=== PATIENT | female | born 1965 | race African-American/Black ===

== ENCOUNTER → 2017-04-07 | Outpatient (CLI) | payer OTHER ==
--- NOTE | 2017-04-07 10:00 | WOMENS IMAGING REPORT ---
EXAM DESCRIPTION: BILAT SCREENING MAMMO W/CAD COMPLETED DATE/TIME: 04/07/2017 7:27 am REASON FOR STUDY: SCREENING MAMMO Z12.31 ENCNTR SCREEN MAMMOGRAM FOR MALIGNANT NEOPLASM OF GEENA COMPARISON: 05/06/2014 TECHNIQUE: Standard craniocaudal and mediolateral oblique views of each breast recorded using digita l acquisition. LIMITATIONS: None. FINDINGS: No masses, calcifications or architectural distortion. No areas of suspicion. Read with the assistance of CAD. .[facility] - R2 Cenova Version 1.3 .[facility] - R2 Cenova Version 1.3 .[facility] - R2 Cenova Version 2.4 .[facility] [place] - R2 Cenova Version 2.4 .[facility] - R2 Clinical Trials Assistant Version 9.2 IMPRESSION: NORMAL MAMMOGRAM. BIRADS 1. BREAST DENSITY: b. There are scattered areas of fibroglandular density. BIRAD: 1 NEGATIVE RECOMMENDATION: ROUTINE SCREENING COMMENT: The patient has been notified of the results by letter per SA requirements. Additional no tification policies are in place for contacting patient with suspicious or incomplete findings. Quality ID #[id number]: The [employer] recommends an annual screening mammogram for women aged 40 years or over. This facility utilizes a reminder system to ensure that all patients receive reminder letters, and/or direct phone calls for appointments. This includes reminders for routine scr eening mammograms, diagnostic mammograms, or other Breast Imaging Interventions when appropriate. Th is patient will be placed in the appropriate reminder system. The [employer] (ACR) has developed recommendations for screening MRI of the breast s in certain patient populations, to be used in conjunction with mammography. Breast MRI surveillanc e may be appropriate for women with more than 20% lifetime risk of developing breast cancer as deter mined by genetic testing, significant family history of the disease, or history of mantle radiation f or Hodgkins Disease. ACR Practice Guidelines 2008. TECHNICAL DOCUMENTATION: FINDING NUMBER: (1) ASSESSMENT: (1) JOB ID: [id number] [employer]- All Rights Reserved
== END ==
LOC: WI 07:03
PROVIDERS: ATTEND Internal Medicine
DX: Z12.31 Encounter for screening mammogram for malignant neoplasm of breast (principal)
CPT/HCPCS: 77067; G0202

== ENCOUNTER 2017-06-27 14:17 | Emergency (ER) | payer OTHER ==
[2017-06-27] MEDS ORDERED: ACETAMINOPHEN 325 MG TABLET PO ONE (14:54)
--- NOTE | 2017-06-27 15:01 | ER Document Report ---
ED Fall - General Chief Complaint: Fall Stated Complaint: FALL/ RIGHT FOOT PAIN Time Seen by Provider: 06/27/17 14:36 Mode of Arrival: Ambulatory Information source: Patient Notes: 51-year-old female presents to ED for complaint of pain to the right foot and great toe. She states she fell this morning and thought that she had just injured her toe but the pain continued all day has not gotten any better. So she came to the ER to get her toe examined. Her home meds are metoprolol ER 200 mg daily valsartan/HCTZ 320/25 daily amlodipine besylate 10 mg p.o. daily amphetamine 1 daily. TRAVEL OUTSIDE OF THE [place] IN LAST 30 DAYS: No - HPI Occurred: This morning Where: Work Context: Tripped Associated symptoms: None Location of injury/pain: Foot Quality of pain: Achy, Sharp Severity: Moderate Pain Level: 4 - Related data Allergies/Adverse Reactions: iodine [Iodine] Allergy (Severe, Verified 06/27/17 14:19) Anaphylaxis Shellfish * [Shellfish] Allergy (Severe, Verified 06/27/17 14:19) Anaphylaxis verapamil Allergy (Verified 06/27/17 14:41) Home Medications: Current Home Medications Amlodipine Besylate [Norvasc 10 mg Tablet] 1 tab PO DAILY 06/27/17 [History] Metoprolol Succinate 1 tab PO DAILY 06/27/17 [History] Phentermine HCl 37.5 mg PO DAILY 06/27/17 [History] Valsartan/Hydrochlorothiazide [Valsartan-Hctz 320-25 mg Tab] 1 tab PO DAILY [History] Past Medical History - General Information source: Patient - Social History Smoking Status: Current Every Day Smoker Cigarette use (# per day): Yes - One third pack per day Smoking Education Provided: Yes - About 3 minutes Frequency of alcohol use: None Drug Abuse: None 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 denies: CAD, CVA , Hyperlipidemia, Thyroid Disfunction Patient has suicidal ideation: No Patient has homicidal ideation: No - Past Medical History Cardiac Medical History: Reports: Hx Hypertension Pulmonary Medical History: Reports: None EENT Medical History: Reports: None Neurological Medical History: Reports: None Endocrine Medical History: Reports: None Renal/ Medical History: Reports: Hx Ovarian Cysts, Other - Patient donated 1 kidney/endometriosis and fibroid uterus Malignancy Medical History: Reports: None GI Medical History: Reports: None Musculoskeltal Medical History: Reports Hx Arthritis Skin Medical History: Reports None Psychiatric Medical History: Reports: None Traumatic Medical History: Reports: None Infectious Medical History: Reports: None Past Surgical History: Reports: Hx Gynecologic Surgery - Ablation, removal of one ovary and tube on the right then hysterectomy, Hx Hysterectomy - Immunizations Hx Diphtheria, Pertussis, Tetanus Vaccination: Yes Review of Systems - Review of Systems Constitutional: No symptoms reported EENT: No symptoms reported Cardiovascular: No symptoms reported Respiratory: No symptoms reported Gastrointestinal: No symptoms reported Genitourinary: No symptoms reported Female Genitourinary: No symptoms reported Musculoskeletal: Other - Right foot and great toe pain after falling this morning Skin: No symptoms reported Hematologic/Lymphatic: No symptoms reported Neurological/Psychological: No symptoms reported Physical Exam - Vital signs Vitals: Temp Pulse Resp BP Pulse Ox 98.7 F 76 20 150/80 H 98 06/27/17 14:26 06/27/17 14:26 06/27/17 14:26 06/27/17 14:26 06/27/17 14:26 Interpretation: Normal - General General appearance: Appears well, Alert - HEENT Head: Normocephalic, Atraumatic Eyes: Normal Pupils: PERRL - Respiratory Respiratory status: No respiratory distress Chest status: Nontender Breath sounds: Normal Chest palpation: Normal - Cardiovascular Rhythm: Regular Heart sounds: Normal auscultation Murmur: No - Abdominal Inspection: Normal Distension: No distension Bowel sounds: Normal Tenderness: Nontender Organomegaly: No organomegaly - Back Back: Normal, Nontender - Extremities General upper extremity: Normal inspection, Nontender, Normal color, Normal ROM , Normal temperature General lower extremity: Normal color, Normal ROM, Normal temperature, Normal weight bearing. No: Theodora's sign Foot: Tender, Metatarsal compress. pain - Great toe and foot just behind the great toe first, No evidence of FB. No: Abrasion, Deformity, Ecchymosis, Edema , Instability, Nail injury, Navicular tenderness, Puncture wound, Tender 5th metatarsal, Unable to bear weight - Neurological Neuro grossly intact: Yes Cognition: Normal Orientation: AAOx4 [place] Coma Scale Eye Opening: Spontaneous [place] Coma Scale Verbal: Oriented [place] Coma Scale Motor: Obeys Commands Radha Coma Scale Total: 15 Speech: Normal Motor strength normal: LUE, RUE, LLE, RLE Sensory: Normal - Psychological Associated symptoms: Normal affect, Normal mood - Skin Skin Temperature: Warm Skin Moisture: Dry Skin Color: Normal Course - Re-evaluation Re-evalutation: 06/27/17 15:44 Discusssed xray with patient and written report of x-ray given to patient. Patient will be discharged home and instructed to follow-up with primary doctor or orthopedics if the pain continues. 06/28/17 09:07 - Vital Signs Vital signs: Temp Pulse Resp BP Pulse Ox 98.3 F 67 18 146/84 H 97 06/27/17 15:47 06/27/17 15:47 06/27/17 15:47 06/27/17 15:47 06/27/17 15:47 - Diagnostic Test Radiology reviewed: Image reviewed, Reports reviewed Discharge - Discharge Clinical Impression: Contusion of right foot Qualifiers: Encounter type: initial encounter Qualified Code(s): S90.31XA - Contusion of right foot, initial encounter HTN (hypertension) Qualifiers: Hypertension type: unspecified Qualified Code(s): I10 - Essential (primary) hypertension Condition: Stable Disposition: HOME, SELF-CARE Instructions: Family Physicians / Practices Additional Instructions: CONTUSION: Your injury has resulted in a contusion -- a crushing of the deep tissues. No injury to important structures was detected during the physician's exam. Contusions vary in the amount of pain they cause, and in the length of time required for healing. Typically, the area will become bruised, and will remain painful to touch for two or three weeks. However, most patients are back to working and playing within a few days. After the initial period of rest and cold-packs, your symptoms (together with the doctor's recommendations) will determine how rapidly you can get back to full activity. Usually this means "do what feels okay, but don't do things that hurt." If re-examination was recommended, it's important to follow up as instructed. Call the doctor or return any time if pain increases, if swelling becomes severe, if you develop numbness or weakness in an injured extremity, or if any other alarming symptoms occur. USE OF TYLENOL (ACETAMINOPHEN): Acetaminophen may be taken for pain relief or fever control. It's much safer than aspirin, offering a wider range of "safe" dosages. It is safe during . Some brand names are Tylenol, Panadol, Datril, Anacin 3, Tempra, and Liquiprin. Acetaminophen can be repeated every four hours. The following are maximum recommended dosages: WEIGHT Dose Drops Elixir Chewable( 80mg) (LBS.) drprs=droppers tsp=teaspoon 6 40 mg 0.4 ml (1/2) 6-11 80 mg 0.8 ml (full) tsp 1 tab 12-16 120 mg 1 1/2 drprs 3/4 tsp 1 1/2 tabs 17-23 160 mg 2 drprs 1 tsp 2 tabs 24-30 240 mg 3 drprs 1 1/2 tsp 3 tabs 30-35 320 mg 2 tsp 4 tabs 36-41 360 mg 2 1/4 tsp 4 1/2 tabs 42-47 400 mg 2 1/2 tsp 5 tabs 48-53 480 mg 3 tsp 6 tabs 54-59 520 mg 3 1/4 tsp 6 1/2 tabs 60-64 560 mg 3 1/2 tsp 7 tabs 65-70 600 mg 3 3/4 tsp 7 1/2 tabs 71-76 640 mg 4 tsp 8 tabs 77-82 720 mg 4 1/2 tsp 9 tabs 83-88 800 mg 5 tsp 10 tabs >89 pounds or adults 650 mg to 900 mg Acetaminophen can be repeated every four hours. Maximum dose not to exceed 4000 mg a day. These maximum recommended dosages are slightly higher than the dosages written on the product container, but these dosages are very safe and below the toxic dosage for acetaminophen. Ice & Elevation Apply ice packs frequently against the painful area. Many different schedules are recommended, such as "20 minutes on, 20 minutes off" or "one hour ice, two hours rest." If you need to work, you may need to go longer between ice treatments. You should plan to have the area ice packed AT LEAST one- fourth of the time. The ice should be applied over the wrap, tape, or splint, or over a layer of cloth -- not directly against the skin. Some ice bags have a built-in cloth and can be put directly on the skin. Your injured part should be elevated as much as possible over the next 48 hours. Try to keep the injury above the level of the heart. Avoid use of the injured area. Elevation and rest will decrease the swelling. FOLLOW-UP CARE: If you have been referred to a physician for follow-up care, call the physician s office for an appointment as you were instructed or within the next two days. If you experience worsening or a significant change in your symptoms, notify the physician immediately or return to the Emergency Department at any time for re-evaluation. Forms: Elevated Blood Pressure Referrals: NANCY NAVARRO DO [ACTIVE STAFF] - Follow up as needed
--- NOTE | 2017-06-27 15:32 | RADIOLOGY REPORT (SQ) ---
EXAM DESCRIPTION: FOOT RIGHT COMPLETE COMPLETED DATE/TIME: 06/27/2017 3:13 pm REASON FOR STUDY: fall injury pain great toe and foot COMPARISON: None. NUMBER OF VIEWS: Three views. TECHNIQUE: AP, lateral and oblique radiographic images acquired of the right foot. LIMITATIONS: None. FINDINGS: MINERALIZATION: Normal. BONES: No acute fracture or dislocation. No worrisome bone lesions. JOINTS: No effusions. SOFT TISSUES: No soft tissue swelling. No foreign body. OTHER: No other significant finding. IMPRESSION: NEGATIVE STUDY OF THE RIGHT FOOT. NO RADIOGRAPHIC EVIDENCE OF ACUTE INJURY. TECHNICAL DOCUMENTATION: JOB ID: [id number] [employer]- All Rights Reserved
[2017-06-27 15:50] VITALS: BP 146/84
== END 2017-06-27 15:50 | disposition home or self-care (01) ==
LOC: ER 14:17
DX: S90.31XA Contusion of right foot, initial encounter (principal); I10 Essential (primary) hypertension; M79.671 Pain in right foot; W19.XXXA Unspecified fall, initial encounter; Z79.899 Other long term (current) drug therapy
CPT/HCPCS: 99283

== ENCOUNTER → 2018-04-13 | Outpatient (CLI) | payer OTHER ==
--- NOTE | 2018-04-13 17:00 | WOMENS IMAGING REPORT ---
EXAM DESCRIPTION: 3D SCREENING MAMMO BILAT COMPLETED DATE/TIME: 04/13/2018 9:38 am REASON FOR STUDY: SCREENING MAMMO Z12.31 ENCNTR SCREEN MAMMOGRAM FOR MALIGNANT NEOPLASM OF GEENA COMPARISON: 2013 TECHNIQUE: Standard craniocaudal and mediolateral oblique views of each breast recorded using digita l acquisition and breast tomosynthesis. LIMITATIONS: None. FINDINGS: No masses, calcifications or architectural distortion. No areas of suspicion. Read with the assistance of CAD. .[facility] - R2 Cenova Version 1.3 .[facility] - R2 Cenova Version 1.3 .[facility] - R2 Cenova Version 2.4 .[facility] - R2 Cenova Version 2.4 .[facility] - R2 Spot Man Version 9.2 IMPRESSION: NORMAL MAMMOGRAM. BIRADS 1. BREAST DENSITY: b. There are scattered areas of fibroglandular density. BIRAD: 1 NEGATIVE RECOMMENDATION: ROUTINE SCREENING Please continue yearly bilateral screening tomosynthesis in April 2019. COMMENT: The patient has been notified of the results by letter per SA requirements. Additional no tification policies are in place for contacting patient with suspicious or incomplete findings. Quality ID #[id number]: [employer] recommends an annual screening mammogram for women aged 40 years or over. This facility utilizes a reminder system to ensure that all patients receive reminder letters, and/or direct phone calls for appointments. This includes reminders for routine scr eening mammograms, diagnostic mammograms, or other Breast Imaging Interventions when appropriate. Th is patient will be placed in the appropriate reminder system. The [employer] (ACR) has developed recommendations for screening MRI of the breast s in certain patient populations, to be used in conjunction with mammography. Breast MRI surveillanc e may be appropriate for women with more than 20% lifetime risk of developing breast cancer as deter mined by genetic testing, significant family history of the disease, or history of mantle radiation f or Hodgkins Disease. ACR Practice Guidelines 2008. DBT Technology DBT is a type of tomographic mammography. With conventional mammography, overlapping breast tissue ma y make lesions difficult to detect, even with good compression. DBT uses an x-ray tube that rotates a round the breast, taking images at different angles. These images are then combined to create thin sl ices of the breast that the radiologist can view as a 3D reconstruction. The [employer] unit can perform full-field digital mammograms (2D imaging); or DBT (3D imaging); or both, in a combination mode that quickly performs both the mammogram and the tomosynthesis scan while the breast is still compressed. PQRS 6045F: Fluoroscopic imaging is not utilized for breast tomosynthesis. TECHNICAL DOCUMENTATION: FINDING NUMBER: (1) ASSESSMENT: (1) JOB ID: [id number] [employer]- All Rights Reserved Reading location - IP/workstation name: [facility]-RR2
== END ==
LOC: WI 09:11
PROVIDERS: ATTEND Internal Medicine
DX: Z12.31 Encounter for screening mammogram for malignant neoplasm of breast (principal)
CPT/HCPCS: 77063; 77067

== ENCOUNTER 2018-05-22 14:32 | Emergency (ER) | payer OTHER ==
[2018-05-22 14:51] VITALS: BP 148/83
--- NOTE | 2018-05-22 15:25 | ER Document Report ---
HPI - HPI Patient complains to provider of: knee pain Time Seen by Provider: 05/22/18 14:53 Onset: Last week Onset/Duration: Sudden, Persistent, Waxing and waning Quality of pain: Achy Pain Level: 4 Context: Patient presents emergency department with complaints of left knee pain that started happening approximately 1 week ago. She denies trauma. 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 She denies recent trip. No shortness of breath. She reports the pain comes and goes and her knee will swell up. She reports she had the same knee pain approximately 1 year ago when saw her primary care provider who told her it was probably arthritis. She denies other symptoms such as fever nausea vomiting diarrhea. Patient reports she has been taking Tylenol but that has not relieved the pain. Last Tylenol was approximately 10:00 this morning. 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 denies: CAD, CVA , Hyperlipidemia, Thyroid Disfunction Patient has suicidal ideation: No Patient has homicidal ideation: No - Past Medical History Cardiac Medical History: Reports: Hx Hypertension Renal/ Medical History: Reports: Hx Ovarian Cysts. Denies: Hx Peritoneal Dialysis Musculoskeletal Medical History: Reports Hx Arthritis Past Surgical History: Reports: Hx Cardiac Surgery - ablation, Hx Gynecologic Surgery - Ablation, removal of one ovary and tube on the right then hysterectomy , Hx Hysterectomy, Hx Kidney (Renal Surgery) - one Kidney. Patient donated a kidney to her father - Immunizations Hx Diphtheria, Pertussis, Tetanus Vaccination: Yes Vertical Provider Document - CONSTITUTIONAL Agree With Documented VS: Yes Exam Limitations: No Limitations General Appearance: WD/WN, No Apparent Distress - INFECTION CONTROL TRAVEL OUTSIDE OF THE [place] IN LAST 30 DAYS: No - HEENT HEENT: Atraumatic, Normocephalic - NECK Neck: Supple - RESPIRATORY Respiratory: No Respiratory Distress - CARDIOVASCULAR Cardiovascular: Regular Rate - MUSCULOSKELETAL/EXTREMETIES Musculoskeletal/Extremeties: MAEW, FROM, Non-Tender - no c/o knee pain with palpation or movement, no erythema, warmth, no obvious deformity. neg. homans, no c/o calf pain. patient reports anterior knee pain that comes/goes - NEURO Level of Consciousness: Awake, Alert, Appropriate Motor/Sensory: No Motor Deficit - DERM Integumentary: Warm, Dry Adult Front & Back Diagram: 1 - reports area of pain that comes/goes Course - Re-evaluation Re-evalutation: 05/22/18 16:30 Patient was instructed on x-ray osteoarthritis knee effusion. She was instructed on the importance of follow-up with Dr. Rojas on Friday. Rest ice. She cannot take NSAIDs due to her having one kidney. Patient verbalized understanding to all instructions. She was also instructed of signs and symptoms of infection to the knee. Dictation of this chart was performed using voice recognition software; therefore, there may be some unintended grammatical errors. - Vital Signs Vital signs: Temp Pulse Resp BP Pulse Ox 98.7 F 72 18 148/83 H 95 05/22/18 14:50 05/22/18 14:50 05/22/18 14:50 05/22/18 14:50 05/22/18 14:50 - Diagnostic Test Radiology reviewed: Image reviewed, Reports reviewed - EXAM DESCRIPTION: KNEE LEFT 4 VIEW COMPLETED DATE/TIME: 05/22/2018 3:36 pm REASON FOR STUDY: pain, swelling COMPARISON: None. NUMBER OF VIEWS: Four views. TECHNIQUE: AP, lateral, and both oblique radiographic images acquired of the left knee. LIMITATIONS: None. FINDINGS: MINERALIZATION: Normal. BONES: No acute fracture or dislocation. No worrisome bone lesions. JOINT: Moderate tricompartmental osteoarthritis. Moderate knee joint effusion. SOFT TISSUES: No soft tissue swelling. No radio-opaque foreign body. OTHER: No other significant finding. IMPRESSION: No fracture or dislocation of the left knee. Moderate tricompartmental osteoarthritis. Nonspecific knee joint effusion. Discharge - Discharge Clinical Impression: Left knee pain Qualifiers: Chronicity: acute Qualified Code(s): M25.562 - Pain in left knee Osteoarthritis Qualifiers: Osteoarthritis location: knee Osteoarthritis type: unspecified Laterality: left Qualified Code(s): M17.12 - Unilateral primary osteoarthritis, left knee Condition: Stable Disposition: HOME, SELF-CARE Instructions: Ice & Elevation ([facility]), Knee Effusion ([facility]), Osteoarthritis ([facility]) Additional Instructions: *You have been evaluated for left knee pain, osteoarthritis, knee effusion *Rest your knee this /Ice/Elevate *Follow up with your primary care provider Friday *Take tylenol as indicated *Return to ED for worsening condition, changes, needs Monitor your blood pressure. Your blood pressure was elevated today. This may be because you were anxious, in pain or because you need medication. It is important to follow up with your primary care provider for full evaluation. Forms: Return to Work Referrals: PEÑA ROJAS MD [Primary Care Provider] - 05/25/18
--- NOTE | 2018-05-22 15:59 | RADIOLOGY REPORT (SQ) ---
EXAM DESCRIPTION: KNEE LEFT 4 VIEW COMPLETED DATE/TIME: 05/22/2018 3:36 pm REASON FOR STUDY: pain, swelling COMPARISON: None. NUMBER OF VIEWS: Four views. TECHNIQUE: AP, lateral, and both oblique radiographic images acquired of the left knee. LIMITATIONS: None. FINDINGS: MINERALIZATION: Normal. BONES: No acute fracture or dislocation. No worrisome bone lesions. JOINT: Moderate tricompartmental osteoarthritis. Moderate knee joint effusion. SOFT TISSUES: No soft tissue swelling. No radio-opaque foreign body. OTHER: No other significant finding. IMPRESSION: No fracture or dislocation of the left knee. Moderate tricompartmental osteoarthritis. Nonspecific knee joint effusion. TECHNICAL DOCUMENTATION: JOB ID: [id number] [employer]- All Rights Reserved Reading location - IP/workstation name: [email or web address]
== END 2018-05-22 16:45 | disposition home or self-care (01) ==
LOC: ER 14:32
DX: M17.12 Unilateral primary osteoarthritis, left knee (principal); M25.562 Pain in left knee; M25.462 Effusion, left knee; F17.210 Nicotine dependence, cigarettes, uncomplicated; I10 Essential (primary) hypertension
CPT/HCPCS: 99283

== ENCOUNTER 2018-06-20 02:52 | Emergency (ER) | payer OTHER ==
[2018-06-20] MEDS ORDERED: MORPHINE SULFATE 10 MG/ML INJ IV ONE (03:14)
[2018-06-20] MEDS ORDERED: ONDANSETRON HCL INJ/PF 4 MG/2 ML SDV IV ONE (03:14)
--- NOTE | 2018-06-20 03:16 | ER Document Report ---
ED Cardiac - General TRAVEL OUTSIDE OF THE [place] IN LAST 30 DAYS: No <TIMI RODARTE - Last Filed: 06/20/18 06:55> <ANGELIKA VILCHIS - Last Filed: 06/20/18 13:41> - General Chief Complaint: Chest Pain Stated Complaint: CHEST PAIN Time Seen by Provider: 06/20/18 03:00 Notes: Patient is a 52-year-old female that comes to the Emergency department for chief complaint of chest pain. She states she started feeling pain in her chest at about 11:30 PM, she went to sleep, she woke up, she vomited 4 times and broke out into a sweat. She states she took two 81 mg aspirins, she was given 2 more by EMS, she was also given 2 sublingual nitroglycerin doses. She states her symptoms almost completely resolved but now they are starting to come back a little bit. She denies any abdominal pain, back pain, fever, cough. Past medical history of hypertension, obesity, and she donated one kidney to a family member. She denies personal or family history of NM, states she has never had a stress test or cardiac catheterization. She did eat [employer] for dinner but she again denies any abdominal pain. (TIMI RODARTE) - Related Data Allergies/Adverse Reactions: iodine [Iodine] Allergy (Severe, Verified 06/27/17 14:19) Anaphylaxis Shellfish * [Shellfish] Allergy (Severe, Verified 06/27/17 14:19) Anaphylaxis verapamil Allergy (Verified 06/27/17 14:41) Past Medical History - General Information source: Patient - Social History Smoking Status: Never Smoker Frequency of alcohol use: None Drug Abuse: None Lives with: Family Family History: Arthritis, COPD, DM, Hypertension, Malignancy. denies: CAD, CVA , Hyperlipidemia, Thyroid Disfunction Patient has suicidal ideation: No Patient has homicidal ideation: No - Past Medical History Cardiac Medical History: Reports: Hx Hypertension Renal/ Medical History: Reports: Hx Ovarian Cysts. Denies: Hx Peritoneal Dialysis Musculoskeletal Medical History: Reports Hx Arthritis Past Surgical History: Reports: Hx Cardiac Surgery - ablation, Hx Gynecologic Surgery - Ablation, removal of one ovary and tube on the right then hysterectomy , Hx Hysterectomy, Hx Kidney (Renal Surgery) - one Kidney. Patient donated a kidney to her father - Immunizations Hx Diphtheria, Pertussis, Tetanus Vaccination: Yes <TIMI RODARTE - Last Filed: 06/20/18 06:55> Review of Systems - Review of Systems Constitutional: See HPI EENT: No symptoms reported Cardiovascular: See HPI Respiratory: No symptoms reported Gastrointestinal: See HPI Genitourinary: No symptoms reported Female Genitourinary: No symptoms reported Musculoskeletal: No symptoms reported Skin: No symptoms reported Hematologic/Lymphatic: No symptoms reported Neurological/Psychological: No symptoms reported <TIMI RODARTE - Last Filed: 06/20/18 06:55> Physical Exam <TIMI RODARTE - Last Filed: 06/20/18 06:55> <ANGELIKA VILCHIS - Last Filed: 06/20/18 13:41> - Vital signs Vitals: Pulse Ox 100 06/20/18 02:58 - Notes Notes: GENERAL: Alert, interacts well. No acute distress. HEAD: Normocephalic, atraumatic. EYES: Pupils equal, round, and reactive to light. Extraocular movements intact. ENT: Oral mucosa moist, tongue midline. Oropharynx unremarkable. Airway patent. Nares patent, no nasal septal hematoma, TM's intact. NECK: Full range of motion. Supple. Trachea midline. LUNGS: Clear to auscultation bilaterally, no wheezes, rales, or rhonchi. No respiratory distress. HEART: Regular rate and rhythm. No murmur ABDOMEN: Soft, non-tender. Non-distended. Bowel sounds present in all 4 quadrants. GENITOURINARY: Deferred EXTREMITIES: Moves all 4 extremities spontaneously. No edema, normal radial and dorsalis pedis pulses bilaterally. No cyanosis. BACK: no cervical, thoracic, lumbar midline tenderness. No saddle anesthesia, normal distal neurovascular exam. NEUROLOGICAL: Alert and oriented x3. Normal speech. [cranial nerves II through XII grossly intact]. PSYCH: Normal affect, normal mood. SKIN: Warm, dry, normal turgor. No rashes or lesions noted. (TIMI RODARTE) Course - Laboratory Result Diagrams: 06/20/18 03:14 06/20/18 03:55 <TIMI RODARTE - Last Filed: 06/20/18 06:55> - Laboratory Result Diagrams: 06/20/18 03:14 06/20/18 03:55 <MAME,ANGELIKA C - Last Filed: 06/20/18 13:41> - Re-evaluation Re-evalutation: EKG shows sinus rhythm at a rate of 84, normal axis, no T wave inversions or ST segment changes in consecutive leads. No significant change from prior. Chest x-ray unremarkable. CBC, chemistry, lipase unremarkable. Troponin is initially negative. Patient was given morphine, Zofran, I reevaluated her. She has no symptoms at this time but she states she is still intermittent in the center of her chest. This could be reflux, she did have [employer] before lying down and worsening, she has had symptoms similar in the past but she states this does not feel like burning or sharp pain, it feels like squeezing. Will cycle troponin. I discussed with patient different options, she is on the fence about admission or discharge home. I did discuss with Dr. Grace, on-call for Dr. Rojas, he does not recommend admission at this time, he recommends cycle troponin and if this is normal that she can follow-up in the office for additional management including possible scheduled stress test. Heart score: History suspicious - Slightly 0 EKG - Norm 0 Age - 45-65 1 Initial troponin - normal limit = 0 Risk factors 1 point Total =2 Patient will be given Carafate, Pepcid, I discussed cycling troponin and potentially going home, she is very satisfied with this plan she states. (TIMI RODARTE) 06/20/18 07:15 Bedside handoff received from SAVANNA Franco. Patient currently resting comfortable in the stretcher with family members at bedside. Patient denies any active chest pain at this time. Nurse is at bedside drawing repeat troponin. I will update her as soon as troponin is resulted. 06/20/18 08:30 Repeat troponin elevated at 0.347. I discussed these findings with the patient and family members at bedside and patient indicated that if given a choice she would like to be transferred to [facility]. 06/20/18 08:33 Call was placed to [facility], awaiting callback. Patient is chest pain-free at this time. Patient's vital signs are as follows, heart rate 80, sinus rhythm, blood pressure 149/90, respiratory rate 18, SPO2 97%. 06/20/18 08:40 Patient's family came out of room stating that patient had an episode of sudden shaking and went unresponsive. Both nursing staff and myself immediately went to the patient's bedside and found the patient to be in pulseless V. tach with agonal respirations, a code was called, CPR was initiated and Dr. Kapoor was overhead paged to the room. 06/20/18 09:10 Dr. Kapoor remains at the patient's bedside, patient is now intubated and has an organized rhythm with a pulse. See nursing documentation for full code documentation. She was then moved to trauma 2. There are diffuse ST elevations on repeat EKG specifically in leads V2 V3 and V4. I made a phone call to [facility] to update them as to patient's status, they directed me to call the STEMI line. I called the STEMI line and spoke with Dr. Reyna who agrees to accept the patient. Our secretarial staff is actively working on arranging transport. 06/20/18 09:50 Delay in documentation as both Dr. Kapoor and I have been at the bedside since approximately 08:50. Patient has now received thrombolytics, see MAR for detailed times. This was discussed with her family prior to administration and there were no absolute contraindications noted. Patient's family members have been allowed to come to the bedside to see her. They have been fully updated on her status. She is having occasional purposeful movements, she is trying to breathe over the vent, blood pressure is improving maxed out on multiple pressors, see MAR. We are currently awaiting transport, [facility] is in route as there are no aircraft available due to weather. 06/20/18 10:24 Transport crew was at bedside. Patient has been re-evaluated multiple times by both Dr. Kapoor and myself. Patient is currently with blood pressure 107/80, SPO2 90% on the ventilator, heart rate 112, sinus tach on the monitor. 06/20/18 11:17 Patient departed the facility with [employer] crew, patient condition unchanged from previous assessment. BP 100/47, HR 102, RR 18 on Vent with 90% FiO2, SpO2 98%. (ANGELIKA VILCHIS) - Vital Signs Vital signs: Temp Pulse Resp BP Pulse Ox 14 111/83 100 06/20/18 10:23 06/20/18 10:31 06/20/18 11:20 - Laboratory Laboratory results interpreted by me: 06/20/18 06/20/18 06/20/18 03:14 03:55 10:15 RDW 14.9 H Seg Neutrophils % 33.7 L Lymphocytes % 51.8 H Carbonic Acid 1.88 H ABG pH 6.94 L* ABG pCO2 62.3 H ABG HCO3 13.0 L ABG Total CO2 14.9 L ABG O2 Saturation 87.1 L Potassium 3.5 L BUN 22 H Creatine Kinase 214 H Discharge <TIMI RODARTE - Last Filed: 06/20/18 06:55> <ANGELIKA VILCHIS - Last Filed: 06/20/18 13:41> - Discharge Clinical Impression: Cardiac arrest Vomiting Qualifiers: Vomiting type: unspecified Vomiting Intractability: non-intractable Nausea presence: with nausea Qualified Code(s): R11.2 - Nausea with vomiting, unspecified Chest pain Qualifiers: Chest pain type: unspecified Qualified Code(s): R07.9 - Chest pain, unspecified STEMI (ST elevation myocardial infarction) Qualifiers: Involved coronary artery: unspecified coronary artery Qualified Code(s): I21.3 - ST elevation (STEMI) myocardial infarction of unspecified site Hypotension Qualifiers: Hypotension type: unspecified hypotension type Qualified Code(s): I95.9 - Hypotension, unspecified Condition: Critical Disposition: [facility] Prescriptions: Famotidine [Pepcid 20 mg Tablet] 20 mg PO BID #14 tablet Promethazine HCl [Phenergan 25 mg Tablet] 25 mg PO Q6H PRN #15 tablet PRN Reason: Sucralfate [Carafate 1 gm Tablet] 1 gm PO QID #20 tablet Referrals: PEÑA ROJAS MD [Primary Care Provider] - 06/22/18
[2018-06-20 03:22] LABS: ABSOLUTE BASOPHILS # (AUTO) 0.1 10^3/uL (0.0-0.2); ABSOLUTE EOSINOPHILS # (AUTO) 0.2 10^3/uL (0.0-0.6); ABSOLUTE LYMPHOCYTES (AUTO) 4.3 10^3/uL (0.5-4.7); ABSOLUTE MONOCYTES (AUTO) 0.9 10^3/uL (0.1-1.4); ABSOLUTE NEUT (AUTO) 2.8 10^3/uL (1.7-8.2); BASOPHILS % (AUTO) 1.4 % (0-2); EOSINOPHILS % (AUTO) 2.9 % (0-6); HEMATOCRIT 43.5 % (36.0-47.0); HEMOGLOBIN 14.5 g/dL (12.0-15.5); LYMPHOCYTES % (AUTO) 51.8 % (13-45); MEAN CORPUSCULAR HEMOGLOBIN 28.4 pg (27.0-33.4); MEAN CORPUSCULAR HGB CONC 33.3 g/dL (32.0-36.0); MEAN CORPUSCULAR VOLUME 85 fl (80-97); MONOCYTES % (AUTO) 10.2 % (3-13); PLATELET COUNT 211 10^3/uL (150-450); RED BLOOD COUNT 5.11 10^6/uL (3.72-5.28); RED CELL DISTRIBUTION WIDTH 14.9 % (11.5-14.0); SEGMENTED NEUTROPHILS % (AUTO) 33.7 % (42-78); TOTAL CELLS COUNTED % (AUTO) 100 %; WHITE BLOOD COUNT 8.3 10^3/uL (4.0-10.5)
[2018-06-20 03:47] LABS: CREATINE KINASE MB 0.97 ng/mL (<4.55)
[2018-06-20 03:48] LABS: TROPONIN I < 0.012 ng/mL
--- NOTE | 2018-06-20 03:53 | RADIOLOGY REPORT (SQ) ---
EXAM DESCRIPTION: XR CHEST 1 VIEW COMPLETED DATE/TME: 06/20/2018 03:09 CLINICAL HISTORY: 52 years, Female, chest pain COMPARISON: None. NUMBER OF VIEWS: 1 TECHNIQUE: Portable chest LIMITATIONS: None. FINDINGS: The heart size is normal. The lungs are clear. No pneumothorax IMPRESSION: Negative chest copyright 2010 [employer]- All Rights Reserved
[2018-06-20 04:24] LABS: ALANINE AMINOTRANSFERASE 24 U/L (9-52); ALBUMIN 3.8 g/dL (3.5-5.0); ALKALINE PHOSPHATASE 82 U/L (38-126); ANION GAP 7 (5-19); ASPARTATE AMINO TRANSFERASE 21 U/L (14-36); BILIRUBIN,DIRECT 0.3 mg/dL (0.0-0.4); BILIRUBIN,TOTAL 0.8 mg/dL (0.2-1.3); BLOOD UREA NITROGEN 22 mg/dL (7-20); CALCIUM 9.8 mg/dL (8.4-10.2); CARBON DIOXIDE 28 mmol/L (22-30); CHLORIDE 106 mmol/L (98-107); CREATINE KINASE 214 U/L (30-135); GLUCOSE 98 mg/dL (75-110); POTASSIUM 3.5 mmol/L (3.6-5.0); SODIUM 141.1 mmol/L (137-145); TOTAL PROTEIN 6.7 g/dL (6.3-8.2)
[2018-06-20] MEDS ORDERED: SUCRALFATE 1 GM TABLET PO ONE (04:49)
[2018-06-20] MEDS ORDERED: FAMOTIDINE 20 MG TABLET PO ONE (04:49)
[2018-06-20] MEDS ORDERED: PROMETHAZINE HCL 25 MG TABLET PO ONE (04:56)
--- NOTE | 2018-06-20 07:48 | EKG REPORT ---
SEVERITY:- BORDERLINE ECG - SINUS RHYTHM PROBABLE LEFT ATRIAL ABNORMALITY BORDERLINE R WAVE PROGRESSION, ANTERIOR LEADS : Confirmed by: Angeles Bailey MD 20-Jun-2018 07:48:09
[2018-06-20] MEDS ORDERED: NOREPINEPHRINE BITARTRATE INJ/PF 4 MG/4 ML SDV IV ONE ×3 (08:13→10:38)
[2018-06-20] MEDS ORDERED: DOPAMINE HCL/D5W 800 MG/250 ML RTU BAG IV ONE (08:13)
[2018-06-20] MEDS ORDERED: EPINEPHRINE INJ 1 MG/10 ML DISP.SYRIN ONE (08:13)
[2018-06-20] MEDS ORDERED: AMIODARONE HCL INJ 150 MG/3 ML VIAL IV ONE (08:13)
[2018-06-20] MEDS ORDERED: LORAZEPAM INJ 2 MG/1 ML VIAL ONE (08:42)
[2018-06-20] MEDS ORDERED: VECURONIUM BROMIDE INJ 10 MG VIAL IV ONE ×2 (08:56→09:08)
[2018-06-20] MEDS ORDERED: MIDAZOLAM 2 MG/2 ML INJ ONE (09:04)
[2018-06-20] MEDS ORDERED: MIDAZOLAM 2 MG/2 ML INJ IV ONE (09:06)
[2018-06-20] MEDS ORDERED: DEXTROSE 5%-WATER 250 ML with NOREPINEPHRINE BITARTRATE 4 MG IV PRN ×2 (09:08)
[2018-06-20] MEDS ORDERED: DEXTROSE 5%-WATER 500 ML with AMIODARONE HCL 900 MG IV PRN ×2 (09:08)
[2018-06-20] MEDS ORDERED: EPINEPHRINE INJ/PF 1 MG/1 ML AMPULE ONE (09:08)
[2018-06-20] MEDS ORDERED: TENECTEPLASE INJ 50 MG KIT IV ONE ×2 (09:11→16:02)
[2018-06-20] MEDS ORDERED: DEXTROSE 5%-WATER 250 ML with EPINEPHRINE/PF 1 MG IV PRN ×2 (09:20)
[2018-06-20] MEDS ORDERED: ENOXAPARIN SODIUM INJ 30 MG/0.3 ML DISP.SYRIN IV ONE (09:30)
--- NOTE | 2018-06-20 09:32 | RADIOLOGY REPORT (SQ) ---
EXAM DESCRIPTION: CHEST SINGLE VIEW COMPLETED DATE/TIME: 06/20/2018 9:14 am REASON FOR STUDY: ETT COMPARISON: Earlier the same day. NUMBER OF VIEWS: One view. TECHNIQUE: Single frontal radiographic image of the chest acquired. LIMITATIONS: Overlying support apparatus. FINDINGS: LUNGS AND PLEURA: No pneumothorax. MEDIASTINUM AND HEART: Stable heart size and mediastinal structures. SUPPORT DEVICES: Endotracheal tube tip between thoracic inlet and guillermo. BONY STRUCTURES: No acute findings. HARDWARE: None. OTHER: No other significant finding. IMPRESSION: Good position of endotracheal tube. No pneumothorax. Reading location - IP/workstation name: [email or web address]
[2018-06-20] MEDS ORDERED: DOPAMINE HCL/DEXTROSE 5%-WATER 800 MG/250 ML RTUINJ IV PRN (09:58)
--- NOTE | 2018-06-20 10:14 | ER Document Report ---
ED General - General Chief Complaint: Chest Pain Stated Complaint: CHEST PAIN Time Seen by Provider: 06/20/18 03:00 Notes: Patient was being followed by mid-level provider. Please see mid-level provider 's notes. Apparently patient has chest pain. Had an elevated troponin. Was in the process of being transferred when patient went into cardiac arrest. I was called overhead to go to the room immediately. I found patient with CPR in progress. Initial rhythm appeared to me to be on the monitor as V. fib. Once crash cart was available patient was cardioverted at 200 J. CPR continued. Epinephrine given. Second shock was provided after approximately 5 minutes. Patient remained in V. fib/V. tach. Amiodarone bolus and third shock performed. Patient was converted into a normal sinus rhythm. Patient remained unresponsive. Faint pulse. Multiple IVs were started. Levophed, epinephrine drips started. EKG obtained which showed ST segment elevation in multiple leads. Based on her elevated troponin and cardiac arrest a bolus of TNKase was ordered. Followed by Lovenox. Patient's pulse then began to drop significantly. Blood pressure was dropping. CPR was re-started for 5 minutes. During that 5 minutes the Levophed and epinephrine drip were maxed and another bolus of epinephrine given. The patient was then reassessed. Blood pressure still low. Heart rate is still in the 90s. Oxygen saturation 91%. Please see following details. TRAVEL OUTSIDE OF THE [place] IN LAST 30 DAYS: No - Related Data Allergies/Adverse Reactions: iodine [Iodine] Allergy (Severe, Verified 06/27/17 14:19) Anaphylaxis Shellfish * [Shellfish] Allergy (Severe, Verified 06/27/17 14:19) Anaphylaxis verapamil Allergy (Verified 06/27/17 14:41) Past Medical History - General Information source: [facility] Records Cannot obtain history due to: Intubated, Unstable vital signs - Social History Smoking Status: Never Smoker Frequency of alcohol use: None Drug Abuse: None Lives with: Family Family History: Arthritis, COPD, DM, Hypertension, Malignancy. denies: CAD, CVA , Hyperlipidemia, Thyroid Disfunction Patient has suicidal ideation: No Patient has homicidal ideation: No - Past Medical History Cardiac Medical History: Reports: Hx Hypertension Renal/ Medical History: Reports: Hx Ovarian Cysts. Denies: Hx Peritoneal Dialysis Musculoskeletal Medical History: Reports Hx Arthritis Past Surgical History: Reports: Hx Cardiac Surgery - ablation, Hx Gynecologic Surgery - Ablation, removal of one ovary and tube on the right then hysterectomy , Hx Hysterectomy, Hx Kidney (Renal Surgery) - one Kidney. Patient donated a kidney to her father - Immunizations Hx Diphtheria, Pertussis, Tetanus Vaccination: Yes Review of Systems - Review of Systems -: Yes ROS unobtainable due to patient's medical condition Physical Exam - Vital signs Vitals: Pulse Ox 100 06/20/18 02:58 Interpretation: Hypotensive, Hypoxic - General General appearance: Unresponsive In distress: Severe - HEENT Head: Normocephalic Cornea: Normal - Respiratory Respiratory status: Other - Intubated Chest status: Nontender Breath sounds: Normal Chest palpation: Normal - Cardiovascular Rhythm: Irregularly irregular Notes: Faint pulses - Abdominal Inspection: Normal Distension: No distension Organomegaly: No organomegaly - Extremities General upper extremity: Normal inspection, Nontender, Normal color, Normal temperature General lower extremity: Normal inspection, Nontender, Normal color, Normal temperature. No: Theodora's sign - Neurological Neuro grossly intact: No Notes: Patient moving extremities. Making purposeful movements. Attempting to breathe on her own. Course - Re-evaluation Re-evalutation: 06/20/18 10:14 EKG performed shortly after CPR which showed diffuse ST elevations. After TPA was given still had some ST elevation in the anterior lateral leads. We have are maxed out on Levophed, epinephrine and dopamine. Patient has multiple peripheral IV lines. Anticipate transport immediately. 06/20/18 10:15 Chest X-Ray 06/20/18 09:00 IMPRESSION: Good position of endotracheal tube. No pneumothorax. Laboratory 06/20/18 06/20/18 06/20/18 03:14 03:14 03:14 WBC 8.3 RBC 5.11 Hgb 14.5 Hct 43.5 MCV 85 MCH 28.4 MCHC 33.3 RDW 14.9 H Plt Count 211 Seg Neutrophils % 33.7 L Lymphocytes % 51.8 H Monocytes % 10.2 Eosinophils % 2.9 Basophils % 1.4 Absolute Neutrophils 2.8 Absolute Lymphocytes 4.3 Absolute Monocytes 0.9 Absolute Eosinophils 0.2 Absolute Basophils 0.1 Sodium Cancelled Potassium Cancelled Chloride Cancelled Carbon Dioxide Cancelled Anion Gap Cancelled BUN Cancelled Creatinine Cancelled Est GFR ( Amer) Cancelled Est GFR (Non-Af Amer) Cancelled Glucose Cancelled Calcium Cancelled Total Bilirubin Cancelled Direct Bilirubin Cancelled Neonat Total Bilirubin Cancelled Neonat Direct Bilirubin Cancelled Neonat Indirect Bili Cancelled AST Cancelled ALT Cancelled Alkaline Phosphatase Cancelled Creatine Kinase Cancelled CK-MB (CK-2) 0.97 Troponin I < 0.012 Total Protein Cancelled Albumin Cancelled Lipase 06/20/18 06/20/18 06/20/18 03:55 03:55 07:09 WBC RBC Hgb Hct MCV MCH MCHC RDW Plt Count Seg Neutrophils % Lymphocytes % Monocytes % Eosinophils % Basophils % Absolute Neutrophils Absolute Lymphocytes Absolute Monocytes Absolute Eosinophils Absolute Basophils Sodium 141.1 Potassium 3.5 L Chloride 106 Carbon Dioxide 28 Anion Gap 7 BUN 22 H Creatinine 0.96 Est GFR ( Amer) > 60 Est GFR (Non-Af Amer) > 60 Glucose 98 Calcium 9.8 Total Bilirubin 0.8 Direct Bilirubin 0.3 Neonat Total Bilirubin Not Reportable Neonat Direct Bilirubin Not Reportable Neonat Indirect Bili Not Reportable AST 21 ALT 24 Alkaline Phosphatase 82 Creatine Kinase 214 H CK-MB (CK-2) Troponin I 0.347 Total Protein 6.7 Albumin 3.8 Lipase 294.3 06/20/18 10:22 Patient remains in critical condition but stable for transport. Heart rate is 110, blood pressure is 105/72 on maximum pressor support, oxygen saturation 91%. - Vital Signs Vital signs: Temp Pulse Resp BP Pulse Ox 19 145/90 H 97 06/20/18 09:24 06/20/18 04:01 06/20/18 09:24 - Laboratory Result Diagrams: 06/20/18 03:14 06/20/18 03:55 Laboratory results interpreted by me: 06/20/18 06/20/18 03:14 03:55 RDW 14.9 H Seg Neutrophils % 33.7 L Lymphocytes % 51.8 H Potassium 3.5 L BUN 22 H Creatine Kinase 214 H Procedures - Intubation Orotracheal Airway evaluation: Large tongue Mallampati Classification: Class 2 Intubation method: Orotracheal Blade size: 3 Equipment used: Glidescope ETT size: 7.0 Breath Sounds after Intubation: Equal End tidal CO2 confirmed: Yes Ventilator settings: SIMV Post Intubation Xray: Yes Intubation Complications: No complications Critical Care Note - Critical Care Note Total time excluding time spent on procedures (mins): 75 Comments: Cardiac arrest, hypotension, consultation with specialist, coordination of transfer of care. Discharge - Discharge Clinical Impression: NSTEMI (non-ST elevated myocardial infarction) Vomiting Qualifiers: Vomiting type: unspecified Vomiting Intractability: non-intractable Nausea presence: with nausea Qualified Code(s): R11.2 - Nausea with vomiting, unspecified Chest pain Qualifiers: Chest pain type: unspecified Qualified Code(s): R07.9 - Chest pain, unspecified Condition: Stable Disposition: [facility] Prescriptions: Famotidine [Pepcid 20 mg Tablet] 20 mg PO BID #14 tablet Promethazine HCl [Phenergan 25 mg Tablet] 25 mg PO Q6H PRN #15 tablet PRN Reason: Sucralfate [Carafate 1 gm Tablet] 1 gm PO QID #20 tablet Referrals: PEÑA ROJAS MD [Primary Care Provider] - 06/22/18
[2018-06-20 10:29] LABS: ARTERIAL BLOOD BASE EXCESS -19.8 mmol/L; ARTERIAL BLOOD H2CO3 1.88 mmol/L (1.05-1.35); ARTERIAL BLOOD O2 SATURATION 87.1 % (94-98); ARTERIAL BLOOD PCO2 62.3 mmHg (35-45); ARTERIAL BLOOD PO2 82.3 mmHg (80-100); ARTERIAL BLOOD TOTAL CO2 14.9 mmol/L (21-25)
[2018-06-20 10:31] LABS: ARTERIAL BLOOD FIO2 100%
[2018-06-20 10:32] LABS: ARTERIAL BLOOD PH 6.94 (7.35-7.45)
[2018-06-20] MEDS ORDERED: SODIUM BICARBONATE 8.4% INJ 50 MEQ/50 ML DISP.SYRIN IV ONE (10:35)
[2018-06-20] MEDS ORDERED: SODIUM BICARBONATE 8.4% INJ 50 MEQ/50 ML DISP.SYRIN ONE (10:35)
[2018-06-20 10:56] VITALS: BP 111/83
[2018-06-20] MEDS ORDERED: ENOXAPARIN SODIUM INJ 30 MG/0.3 ML DISP.SYRIN ONE (16:02)
[2018-06-20] MEDS ORDERED: ROCURONIUM BROMIDE INJ 50 MG/5 ML VIAL IV ONE (16:02)
[2018-06-20] MEDS ORDERED: ASPIRIN 81 MG TABLET, CHEWABLE ONE (16:02)
[2018-06-20] MEDS ORDERED: SUCCINYLCHOLINE CHLORIDE INJ 200 MG/10 ML VIAL ONE (16:02)
--- NOTE | 2018-06-22 00:48 | EKG REPORT ---
SEVERITY:- ABNORMAL ECG - ACCELERATED JUNCTIONAL RHYTHM PROBABLE LEFT VENTRICULAR HYPERTROPHY MINIMAL ST ELEVATION, LATERAL LEADS : Confirmed by: Angeles Bailey MD 22-Jun-2018 00:47:52
--- NOTE | 2018-06-22 00:48 | EKG REPORT ---
SEVERITY:- ABNORMAL ECG - SINUS RHYTHM MIRANDA, CONSIDER BIATRIAL ABNORMALITIES LEFT VENTRICULAR HYPERTROPHY ST ELEVATION, PROBABLE LATERAL INJURY CONSIDER ANTERIOR INFARCT BORDERLINE PROLONGED QT INTERVAL : Confirmed by: Angeles Bailey MD 22-Jun-2018 00:47:29
--- NOTE | 2018-06-22 00:48 | EKG REPORT ---
SEVERITY:- ABNORMAL ECG - SINUS TACHYCARDIA MIRANDA, CONSIDER BIATRIAL ABNORMALITIES PROBABLE LEFT VENTRICULAR HYPERTROPHY ST ELEVATION, PROBABLE LATERAL INJURY ST ELEVATION, CONSIDER ANTERIOR INJURY PROLONGED QT INTERVAL : Confirmed by: Angeles Bailey MD 22-Jun-2018 00:48:18
== END 2018-06-20 11:11 | disposition short-term general hospital (02) ==
LOC: ER 02:52
PROC: 0BH17EZ Insertion of Endotracheal Airway into Trachea, Via Natural or Artificial Opening (ICD-10-PCS; principal; 2018-06-20)
DX: I21.4 Non-ST elevation (NSTEMI) myocardial infarction (principal); R07.9 Chest pain, unspecified; R11.2 Nausea with vomiting, unspecified; I10 Essential (primary) hypertension
CPT/HCPCS: 93005; 96376; 36600; 99291; 99292; 92950; 51702; 96375; 96365; 96366; 96368; 36415; 82553; 82962; 82803; 82550; 83690; 85025; 80053; 84484; 71045; 93010; 94002; 31500; J3101; J2250; J3490 ×3; J1265; J0171 ×2; J2270; J0330; J2405; J1650; J7060 ×2; J0282; 94660

== ENCOUNTER → 2019-06-11 | Outpatient (CLI) | payer OTHER ==
--- NOTE | 2019-06-15 08:45 | WOMENS IMAGING REPORT ---
EXAM DESCRIPTION: 3D SCREENING MAMMO BILAT COMPLETED DATE/TIME: 06/11/2019 8:24 am REASON FOR STUDY: ROUTINE BILATERAL SCREENING;Z12.31 Z12.31 ENCNTR SCREEN MAMMOGRAM FOR MALIGNANT N EOPLASM OF GEENA COMPARISON: 2013 and subsequent. EXAM PARAMETERS: Views: Standard craniocaudal and mediolateral oblique views of each breast recorded using digital acquisition and breast tomosynthesis. Read with the assistance of CAD. .[facility] - [employer] Equipment Operator Version 9.2 LIMITATIONS: None. FINDINGS: No suspicious masses, suspicious calcifications or architectural distortion. No areas of c oncern. IMPRESSION: NEGATIVE MAMMOGRAM. BIRADS 1. BREAST DENSITY: b. There are scattered areas of fibroglandular density. BIRAD: ASSESSMENT: 1 NEGATIVE RECOMMENDATION: ROUTINE SCREENING COMMENT: The patient has been notified of the results by letter per MQSA requirements. Additional no tification policies are in place for contacting patient with suspicious or incomplete findings. Quality ID #[id number]: The [employer] recommends an annual screening mammogram for women aged 40 years or over. This facility utilizes a reminder system to ensure that all patients receive reminder letters, and/or direct phone calls for appointments. This includes reminders for routine scr eening mammograms, diagnostic mammograms, or other Breast Imaging Interventions when appropriate. Th is patient will be placed in the appropriate reminder system. TECHNICAL DOCUMENTATION: FINDING NUMBER: (1) ASSESSMENT: (1) JOB ID: [id number] [employer]- All Rights Reserved Reading location - IP/workstation name: [email or web address]
== END ==
LOC: WI 07:02
PROVIDERS: ATTEND Internal Medicine
DX: Z12.31 Encounter for screening mammogram for malignant neoplasm of breast (principal)
CPT/HCPCS: 77063; 77067

== ENCOUNTER 2020-05-19 08:50 | Outpatient (CLI) | payer OTHER ==
[~2020-05-19 08:50] MED LIST: FERRIC CARBOXYMALTOSE 750 MG in NORMAL SALINE 250 ML IV PRN
[2020-05-19 09:15] VITALS: BP 147/78
--- OUTSIDE RECORDS SUMMARY | 2020-05-22 09:37 | XMS REPORT ---
:1965 [facility] Organization [facility] Address [address] [address] Care Team Providers Name Role Phone Eros, Jason Primary Care Physician Unavailable Allergies, Adverse Reactions, Alerts Allergy Allergy Status Severity Reaction(s) Onset Inactive Treating C omments Name Type Date Date Clinician Iodine Iodine Active Unknown 706 00:00: 00 Benazepril Benazepril Active angioedema HCl HCl 7 00:00: 00 Iodine Iodine Inactive Unknown 2018-07 00:00: 00 Benazepril Benazepril Inactive angioedema 2018-07 HCl HCl 122 00:00: 00 Iodine Iodine Inactive Unknown 2018-07 017 00:00: 00 Benazepril Benazepril Inactive angioedema 2018-07 HCl HCl 017 00:00: 00 Iodine Iodine Inactive Unknown 01-29 00:00: 00 Benazepril Benazepril Inactive angioedema HCl HCl 7- 00:00: 00 Medications Ordered Filled Start Stop Current Ordering Indication Dosage Frequency Signature Comments Components Medication Medication Date Date Medication? Clinician (SIG) Name Name Telmisartan No QD 1 tablet 80 MG 3-18 Orally 00:00: Once a day 00 Losartan 2018-07 Yes QD 1 tablet Potassium 1-22 Orally 100 MG 00:00: Once a day 00 Lyrica 50 2018-07 No BID 1 capsule MG 0-17 Orally 00:00: twice a 00 day Arthrotec 2018-07 No TID 1 tablet 50-0.2 MG 0-17 05-02 with food 00:00: 00:00 Orally 00 :00 Three times a day Victoza 18 Yes QD 1.8 mg MG/3ML 5-18 Subcutaneo 00:00: us daily 00 Aspirin 81 Yes QD 1 tablet MG Orally Once a day Losartan No QD 1 tablet Potassium Orally 25 MG Once a day Brilinta 90 No BID 1 tablet MG Orally Twice a day Pantoprazol Yes QD 1 tablet e Sodium 40 Orally mg Once a day Colchicine Yes BID 1 tablet 0.6 MG Orally twice a day Amlodipine Yes QD 1 tablet Besylate 10 Orally mg Once a day Metoprolol Yes QD 1 tablet Succinate Orally ER 100 mg Once a day Atorvastati Yes QD 1 tablet n Calcium Orally 40 MG daily Mupirocin 2 No TID 1 % applicatio n to affected area Externally Three times a day Xarelto 2.5 Yes BID 1 tablet MG Orally Twice a day Lyrica 50 Yes BID 1 capsule MG Orally twice a day Problems Condition Condition Condition Status Onset Resolution Last Treatin g Comments Name Details Category Date Date Treatment Clinician Date Body mass Body mass Problem Active 2018-07 index 40+ - index (BMI) 1-24 severely 45.0-49.9, 00:00: obese adult 00 Lumbar Radiculopat Problem Active 2018-07 radiculopat hy, lumbar 0-17 hy region 00:00: 00 Abdominal Unspecified Problem Active pain abdominal 9-29 pain 00:00: 00 STEMI - [address] ST Problem Active elevation elevation 3-28 myocardial (STEMI) 00:00: infarction myocardial 00 infarction of unspecified site Ventricular Ventricular Problem Active fibrillatio fibrillatio 3-28 n n 00:00: 00 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 3-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 infarction 00:00: 00 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 00:00: [place] 00 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 without angina 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, 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 00:00: 00 Impaired Impaired Problem Active fasting fasting 7-21 glucose glucose 00:00: 00 Screening Encounter Problem Active for for 03-14 malignant screening 00:00: neoplasm of mammogram 00 breast for malignant neoplasm of breast Body mass Body mass Problem Active index 40+ - index (BMI) 2-07 severely 40.0-44.9, 00:00: obese adult 00 Diabetes Encounter Problem Active mellitus for 08-08 screening screening 00:00: for 00 diabetes mellitus Dysphagia Dysphagia, Problem Active 2015-07 unspecified 00:00: 00 Right lower Right lower Problem Active quadrant quadrant 331 pain pain 00:00: 00 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 Results Test Description Test Time Test Comments Text Results Atomic Results Result Comments COMPREHENSIVE METABOLIC 2020-01-14 00:00:00 Test Item Value Reference Range Comments SODIUM (test code = SODIUM) 141 136-145 POTASSIUM (test code = POTASSIUM) 4.0 3.5-5.1 CHLORIDE (test code = CHLORIDE) 105 98-107 CARBONDIOXIDE (test code = CARBONDIOXIDE) 21.0 17-32 GLUCOSE (test code = GLUCOSE) 97 70-99 BUN (test code = BUN) 22 7-25 CREATININESERUM (test code = CREATININESERUM) 1.19 0. 5-1.2 BUN/CREATININERATIO (test code = BUN/CREATININERATIO) 18 8-28 BILIRUBIN,Total (test code = BILIRUBIN,Total) 0.8 0. 2-1.0 CALCIUM (test code = CALCIUM) 9.8 8.6-10.5 PROTEINTOTAL (test code = PROTEINTOTAL) 7.3 6.6-8.2 ALBUMIN (test code = ALBUMIN) 4.2 3.5-5.7 ALK.PHOSPHATASE (test code = ALK.PHOSPHATASE) 105 34 -104 ALT(SGPT) (test code = ALT(SGPT)) 31 7-52 AST(SGOT) (test code = AST(SGOT)) 17 11-39 GLOBULIN (test code = GLOBULIN) 3.1 1.8-4.0 A/GRATIO (test code = A/GRATIO) 1.4 0.8-2.7 GLOMERULARFILT.RATE (test code = GLOMERULARFILT.RATE) 50 >60 HEMOGLOBIN A1c (HGB AIC)2020-01-14 00:00:00 Test Item Value Reference Range Comments [id number](HGBAIC) (test code = 4548-4) 6.5 4.0-5 .6 LAB [id number] 00:00:00 Test Item Value Reference Range Comments PDF (test code = PDF) LAB CBC + AUTOMATED [id number] 00:00:00 Test Item Value Reference Range Comments WBC (test code = WBC) 5.5 4.2-11.8 RBC (test code = RBC) 4.29 3.8-5.0 HEMOGLOBIN (test code = HEMOGLOBIN) 9.3 11.3-14.9 HEMATOCRIT (test code = HEMATOCRIT) 31 34-44.3 MCV (test code = MCV) 73 80.8-97.4 MCH (test code = MCH) 21.6 26.6-33.0 MCHC (test code = MCHC) 29.7 32-34.9 RDW (test code = RDW) 20.1 11.8-15.5 PLATELET (test code = PLATELET) 264 147-365 MPV (test code = MPV) 10.84 6.00-12.00 SEGMENTED% (test code = SEGMENTED%) 54.4 43.7-73.5 SEGMENTED# (test code = SEGMENTED#) 3.0 1.9-7.5 LYMPHOCYTES% (test code = LYMPHOCYTES%) 29.09 17.9-45. 1 LYMPHOCYTES# (test code = LYMPHOCYTES#) 1.6 1-4 MONOCYTES% (test code = MONOCYTES%) 12.4 3.8-10 MONOCYTES# (test code = MONOCYTES#) 0.7 0.2-0.9 EOSINOPHILS% (test code = EOSINOPHILS%) 3.26 0.0-6.1 EOSINOPHILS# (test code = EOSINOPHILS#) 0.18 0.0-0.5 BASOPHILS% (test code = BASOPHILS%) 0.82 0.0-0.9 BASOPHILS# (test code = BASOPHILS#) 0.04 0.0-0.1 COMPREHENSIVE [id number] 00:00:00 Test Item Value Reference Range Comments SODIUM (test code = SODIUM) 142 136-145 POTASSIUM (test code = POTASSIUM) 3.8 3.5-5.1 CHLORIDE (test code = CHLORIDE) 109 98-107 CARBONDIOXIDE (test code = CARBONDIOXIDE) 25.0 17-32 GLUCOSE (test code = GLUCOSE) 109 70-99 BUN (test code = BUN) 16 7-25 CREATININESERUM (test code = CREATININESERUM) 0.88 0. 5-1.2 BUN/CREATININERATIO (test code = BUN/CREATININERATIO) 18 8-28 BILIRUBIN,Total (test code = BILIRUBIN,Total) 0.6 0. 2-1.0 CALCIUM (test code = CALCIUM) 9.2 8.6-10.5 PROTEINTOTAL (test code = PROTEINTOTAL) 6.3 6.6-8.2 ALBUMIN (test code = ALBUMIN) 3.9 3.5-5.7 ALK.PHOSPHATASE (test code = ALK.PHOSPHATASE) 125 34 -104 ALT(SGPT) (test code = ALT(SGPT)) 32 7-52 AST(SGOT) (test code = AST(SGOT)) 20 11-39 GLOBULIN (test code = GLOBULIN) 2.4 1.8-4.0 A/GRATIO (test code = A/GRATIO) 1.6 0.8-2.7 GLOMERULARFILT.RATE (test code = GLOMERULARFILT.RATE) 71 >60 LIPID [id number] 00:00:00 Test Item Value Reference Range Comments CHOLESTEROL (test code = CHOLESTEROL) 83 <200 TRIGLYCERIDES (test code = TRIGLYCERIDES) 93 10-149 HDLCHOLESTEROL (test code = HDLCHOLESTEROL) 40 40-1 99 LDL/HDLRATIO (test code = LDL/HDLRATIO) 0.60 0.00-4.9 7 LDLCHOLESTEROL,calc. (test code = 24 <100 LDLCHOLESTEROL,calc.) VLDLCHOLESTEROL,calc. (test code = 19 5-40 VLDLCHOLESTEROL,calc.) CHOLESTEROL/HDLRATIO (test code = 2.08 2.00-5.00 CHOLESTEROL/HDLRATIO) NON-HDLCHOLESTEROL (test code = NON-HDLCHOLESTEROL) 43 0-159 URIC [id number] 00:00:00 Test Item Value Reference Range Comments URICACID (test code = URICACID) 7.4 2.3-6.6 [id number] 00:00:00 Test Item Value Reference Range Comments COLOR (test code = COLOR) YELLOW YELLOW CLARITY (test code = CLARITY) CLEAR CLEAR SPECIFICGRAVITY (test code = SPECIFICGRAVITY) 1.014 1. 005-1.025 pH (test code = pH) 6.0 5.0-8.5 URINEPROTEIN (test code = URINEPROTEIN) NEGATIVE NEGATIVE URINEGLUCOSE (test code = URINEGLUCOSE) NEGATIVE NEGATIVE URINEKETONE (test code = URINEKETONE) NEGATIVE NEGATIVE URINEBILIRUBIN (test code = URINEBILIRUBIN) NEGATIVE NEGA TIVE URINEBLOOD (test code = URINEBLOOD) NEGATIVE NEGATIVE URINENITRITE (test code = URINENITRITE) NEGATIVE NEGATIVE UROBILINOGEN (test code = UROBILINOGEN) 0.2 0.2-1.0 LEUKOCYTE (test code = LEUKOCYTE) NEGATIVE NEGATIVE *PleaseNote: (test code = *PleaseNote:) MICROALBUMIN/CREATINE [id number] 00:00:00 Test Item Value Reference Range Comments MICROALB/CREATRATIO (test code = 39542-9) 15 0-29 CREATININE,URINE (test code = CREATININE,URINE) 73 20-300 TSH + FREE [id number] 00:00:00 Test Item Value Reference Range Comments [id number] (test code = [id number]) 1.252 0.340-4.410 FREET4 (test code = FREET4) 0.86 0.61-1.12 LAB [id number] 00:00:00 Test Item Value Reference Range Comments PDF (test code = PDF) LAB Assessments Condition Name Status Diagnosis Date Treating Clinici an - Encounter for screening for diabetes Active Ojebuoboh, [place] mellitus Z13.1 - Essential (primary) hypertension I10 Active Ojebuoboh, [place] - Anemia, unspecified D64.9 Active Ojeb uoboh, [place] - Body mass index (BMI) 45.0-49.9, adult Active Ojebuoboh, [place] Z68.42 - 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 O[place]ebuoboh, [place] coronary artery without angina pectoris I25.10 - Encounter for screening for malignant Active Ojebuoboh, [place] neoplasm of colon Z12.11 - Essential (primary) hypertension I10 Active O[place]ebuoboh, [place] - Anemia, unspecified D64.9 Active Ojeb uoboh, [place] - Body mass index (BMI) 45.0-49.9, adult Active Ojebuoboh, [place] Z68.42 - 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 O[place]ebuoboh, [place] coronary artery without angina pectoris I25.10 - Radiculopathy, lumbar region M54.16 Active Ojebuoboh, [place] - Essential (primary) hypertension I10 Active Ojebuoboh, [place] - Body mass index (BMI) 45.0-49.9, adult Active Ojebuoboh, [place] Z68.42 - Unspecified abdominal pain R10.9 Active O[place]ebuoboh, [place] - Essential (primary) hypertension I10 Active O[place]ebuoboh, [place] - Body mass index (BMI) 40.0-44.9, adult Active O[place]ebuoboh, [place] Z68.41 - 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 Ojebuoboh, [place] coronary artery without angina pectoris I25.10 - 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 O[place]ebuoboh, [place] coronary artery without angina pectoris I25.10 - Essential (primary) hypertension I10 Active O[place]ebuoboh, [place] - Morbid (severe) obesity due to excess Active [place]oboh, [place] calories E66.01 - 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 [place]uoboh, [place] coronary artery without angina pectoris I25.10 - Essential (primary) hypertension I10 Active Ojebuoboh, [place] - Old myocardial infarction I25.2 Active O[place]ebuoboh, [place] - Ventricular fibrillation I49.01 Active [place]ebuoboh, [place] - Essential (primary) hypertension I10 Active O[place]ebuoboh, [place] - Morbid (severe) obesity due to excess Active O[place]uoboh, [place] calories 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, left wrist M10.032 Active Ojebuoboh, [place] - Impaired fasting glucose R73.01 Active [place]ebuoboh, [place] - Essential (primary) hypertension I10 Active O[place]ebuoboh, [place] - Impaired fasting glucose R73.01 Active [place]ebuoboh, [place] - Morbid (severe) obesity due to excess Active [place]uoboh, [place] calories E66.01 - Essential (primary) hypertension I10 Active O[place]ebuoboh, [place] - Body mass index (BMI) 40.0-44.9, adult Active Ojebuoboh, [place] Z68.41 - Morbid (severe) obesity due to excess Active O[place]ebuoboh, [place] calories E66.01 - Essential (primary) hypertension I10 Active [place]uoboh, [place] - Encounter for screening mammogram for Active Ojebuoboh, [place] malignant neoplasm of breast Z12.31 - Essential (primary) hypertension I10 Active [place]uoboh, [place] - Impacted cerumen, left ear H61.22 Active [place]uoboh, [place] - Essential (primary) hypertension I10 Active [place]uoboh, [place] - Essential (primary) hypertension I10 Active [place]uoboh, [place] - Encounter for screening for diabetes Active O[place]uoboh, [place] mellitus Z13.1 - Dysphagia, unspecified R13.10 Active [place]uoboh, [place] - Body mass index (BMI) 40.0-44.9, adult Active [place]uoboh, [place] Z68.41 - Essential (primary) hypertension I10 Active [place]uoboh, [place] - Encounter for screening mammogram for Active Ojebuoboh, [place] malignant neoplasm of breast Z12.31 - Encounter for screening for malignant Active Ojebuoboh, [place] neoplasm of colon Z12.11 - Right lower quadrant pain R10.31 Active O[place]ebuoboh, [place] - Benign neoplasm of right ovary D27.0 Active [place]ebuoboh, [place] - Acute sinusitis, unspecified J01.90 Active [place]ebuoboh, [place] - Essential (primary) hypertension I10 Active [place]ebuoboh, [place] - Morbid (severe) obesity due to excess Active [place]ebuoboh, [place] calories E66.01 - Hypertension 401.9 Active [place]uoboh, [place] - Hypertension 401.9 Active [place]uoboh, [place] - Hypertension 401.9 Active O[place]ebuoboh, [place] - Kidney donor V59.4 Active [place]ebuoboh, [place] - Hypertension 401.9 Active [place]uoboh, [place] - Hypertension 401.9 Active [place]uoboh, [place] - Hypertension 401.9 Active [place]uoboh, [place] - Kidney donor V59.4 Active O[place]ebuoboh, [place] - Hypertension 401.9 Active [place]uoboh, [place] - Kidney donor V59.4 Active O[place]ebuoboh, [place] Encounters Start End Encounter Admission Attending Care Care Encounter Date/Time Date/Time Type Type Clinicians Facility Department ID 2020-05-12 2020-05-12 [id number] 00:00:00 00:00:00 PA PA 2020-01-13 2020-01-13 [facility] [id number] 00:00:00 00:00:00 PA PA 2020-01-10 2020-01-10 [facility] [id number]:00 00:00:00 PA 2020-01-05 2020-01-05 [facility] [id number] 00:00:00 00:00:00 PA PA 2019-09-22 2019-09-22 [facility] 32 [id number] 00:00:00 00:00:00 PA PA 2019-08-27 2019-08-27 [facility] 31 [id number] 00:00:00 00:00:00 PA PA 2019-05-28 2019-05-28 [facility] 30 [id number] 00:00:00 00:00:00 PA PA 2019-04-22 2019-04-22 [facility] 31 [id number] 00:00:00 00:00:00 PA PA 2019-03-11 2019-03-11 [facility] 30 [id number] 00:00:00 00:00:00 PA PA 2019-01-29 2019-01-29 [facility] 29 [id number] 00:00:00 00:00:00 PA PA 2018-10-30 2018-10-30 [facility] 28 [id number] 00:00:00 00:00:00 PA PA 2018-07-31 2018-07-31 [facility] 26 [id number] 00:00:00 00:00:00 PA PA 2018-06-22 2018-06-22 [facility] 28 [id number] 00:00:00 00:00:00 PA PA 2018-06-08 2018-06-08 [facility] 28 [id number] 00:00:00 00:00:00 PA PA 2018-04-03 2018-04-03 [facility] 26 [id number] 00:00:00 00:00:00 PA PA 2018-03-20 2018-03-20 [facility] 25 [id number] 00:00:00 00:00:00 PA PA 2017-11-24 2017-11-24 [facility] 25 [id number] 00:00:00 00:00:00 PA PA 2017-11-24 2017-11-24 [facility] 25 [id number] 00:00:00 00:00:00 PA PA 2017-11-24 2017-11-24 [facility] 25 [id number] 00:00:00 00:00:00 PA PA 2017-11-21 2017-11-21 [facility] 24 [id number] 00:00:00 00:00:00 PA PA 2017-07-22 2017-07-22 [facility] 23 [id number] 00:00:00 00:00:00 PA PA 2017-03-14 2017-03-14 [facility] 21 [id number] 00:00:00 00:00:00 PA PA 2016-09-23 2016-09-23 [facility] 21 [id number] 00:00:00 00:00:00 PA PA 2016-09-09 2016-09-09 [facility] 21 [id number] 00:00:00 00:00:00 PA PA 2016-08-08 2016-08-08 [facility] 19 [id number] 00:00:00 00:00:00 PA PA 2016-07-09 2016-07-09 [facility] 21 [id number] 00:00:00 00:00:00 PA PA 2016-07-04 2016-07-04 [facility] 21 [id number] 00:00:00 00:00:00 PA PA 2016-02-06 2016-02-06 [facility] 18 [id number] 00:00:00 00:00:00 PA PA 2015-08-14 2015-08-14 [facility] 18 [id number] 00:00:00 00:00:00 PA PA 2015-08-08 2015-08-08 [facility] 16 [id number] 00:00:00 00:00:00 PA PA 2015-02-07 2015-02-07 [facility] 16 [id number] 00:00:00 00:00:00 PA PA 2015-01-20 2015-01-20 [facility] 16 [id number] 00:00:00 00:00:00 PA PA 2014-06-10 2014-06-10 [facility] 14 [id number] 00:00:00 00:00:00 PA PA 2014-05-18 2014-05-18 [facility] 14 [id number] 00:00:00 00:00:00 PA PA 2014-05-18 2014-05-18 [facility] 14 [id number] 00:00:00 00:00:00 PA PA 2014-04-29 2014-04-29 [facility] 14 [id number] 00:00:00 00:00:00 PA PA 2014-04-29 2014-04-29 [facility] 14 [id number] 00:00:00 00:00:00 PA PA 2013-12-30 2013-12-30 [facility] 13 [id number] 00:00:00 00:00:00 PA PA 2011-09-10 2011-09-10 [facility] 72 [id number] 00:00:00 00:00:00 PA PA 2011-09-10 2011-09-10 [facility] 71 [id number] 00:00:00 00:00:00 PA PA Social History This patient has no known social history. Vital Signs Vital Name Observation Time Observation Value Comments height 2020-01-10 09:15:00 66 [in_us] weight 2020-01-10 09:15:00 287 [lb_av] bmi 2020-01-10 09:15:00 46.32 kg/m2 blood pressure systolic 2020-01-10 09:15:00 150 mm[Hg] blood pressure diastolic 2020-01-10 09:15:00 90 mm[Hg] height 2019-05-28 09:00:00 66 [in_us] weight 2019-05-28 09:00:00 281.8 [lb_av] bmi 2019-05-28 09:00:00 45.48 kg/m2 blood pressure systolic 2019-05-28 09:00:00 150 mm[Hg] blood pressure diastolic 2019-05-28 09:00:00 80 mm[Hg] height 2019-04-22 10:30:00 66 [in_us] weight 2019-04-22 10:30:00 280.2 [lb_av] bmi 2019-04-22 10:30:00 45.22 kg/m2 heart rate 2019-04-22 10:30:00 74 /min blood pressure systolic 2019-04-22 10:30:00 145 mm[Hg] blood pressure diastolic 2019-04-22 10:30:00 81 mm[Hg] height 2019-01-29 09:00:00 66 [in_us] weight 2019-01-29 09:00:00 270.8 [lb_av] bmi 2019-01-29 09:00:00 43.70 kg/m2 heart rate 2019-01-29 09:00:00 83 /min blood pressure systolic 2019-01-29 09:00:00 135 mm[Hg] blood pressure diastolic 2019-01-29 09:00:00 84 mm[Hg]
== END 2020-05-19 10:00 | disposition home or self-care (01) ==
LOC: II 08:50 → 5TH 08:52 → II 10:00
PROVIDERS: ATTEND Internal Medicine
DX: D50.0 Iron deficiency anemia secondary to blood loss (chronic) (principal)
CPT/HCPCS: 96374; J7050; J1439

== ENCOUNTER 2020-05-26 08:52 | Outpatient (CLI) | payer OTHER ==
[2020-05-26 09:22] VITALS: BP 122/81
== END 2020-05-26 10:07 | disposition home or self-care (01) ==
LOC: II 08:52 → 5TH 08:55 → II 10:07
PROVIDERS: ATTEND Internal Medicine
DX: D50.0 Iron deficiency anemia secondary to blood loss (chronic) (principal)
CPT/HCPCS: 96374; J1439; J7050